=== PATIENT | male | born 1995 | race Caucasian/White ===

== ENCOUNTER 2021-03-07 17:26 | Emergency (ER) | payer BC ==
[2021-03-07 18:02] LABS: #Eosinphils 0.5 thou/uL (0.0-0.7); #Lymphocytes 1.3 thou/uL (1.20-3.40); #Monocytes 0.3 thou/uL (0.11-0.59); #Neutrophils 4.4 thou/uL (1.40-6.50); %Eosinophils 7.6 % (0.0-10.0); %Monocytes 5.1 % (0.0-10.0); %Neutrophils 67.2 % (42.0-75.0); Hemoglobin 14.6 g/dL (14.0-18.0); Mean Corpuscular HGB CONC 32.2 g/dL (32.0-36.0); Mean Corpuscular Volume 93.1 fL (78.0-98.0); Mean Platelet Volume 7.2 fL (7.4-10.4); Platelet Count 227 thou/uL (130-400); RBC Distribution Width 14.1 % (11.5-14.5); Red Blood Cell (RBC) Count 4.87 mill/uL (4.70-6.10); White Blood Cell (WBC) Count 6.5 thou/uL (4.8-10.8)
[2021-03-07 18:33] LABS: ALT (SGPT) 33 U/L (8-55); AST (SGOT) 22 U/L (5-34); Albumin 3.7 g/dL (3.5-5.0); Alkaline Phosphatase 68 U/L (40-110); Anion Gap 11 mmol/L (10-20); BUN (Urea Nitrogen) 15 mg/dL (8.9-20.6); Bilirubin, Total 0.9 mg/dL (0.2-1.2); Calc. Creatinine Clearance 0 mL/min (70-130); Calcium 9.3 mg/dL (7.8-10.44); Carbon Dioxide 26 mmol/L (22-29); Chloride 104 mmol/L (98-107); Globulin 3.8 g/dL (2.4-3.5); Glucose 106 mg/dL (70-105); Potassium 3.9 mmol/L (3.5-5.1); Protein, Total 7.5 g/dL (6.0-8.3); Sodium 137 mmol/L (136-145)
== END 2021-03-07 20:56 | disposition home or self-care (01) ==
LOC: ERS 17:26
DX: R10.12 Left upper quadrant pain (principal); R10.32 Left lower quadrant pain; R19.7 Diarrhea, unspecified; R11.2 Nausea with vomiting, unspecified; E66.01 Morbid (severe) obesity due to excess calories; I10 Essential (primary) hypertension; F17.210 Nicotine dependence, cigarettes, uncomplicated; Z79.899 Other long term (current) drug therapy
CPT/HCPCS: 71045; 80053; 83690; 85025; 86850; 86900; 86901; 93005

== ENCOUNTER 2024-01-25 14:07 | Emergency (ER) | payer OTHER, SELFPAY ==
[2024-01-25] MEDS ORDERED: Ibuprofen 800 MG TAB ONE (14:42)
[2024-01-25 14:43] LABS: #Eosinphils 0.3 thou/uL (0.0-0.7); #Monocytes 0.4 thou/uL (0.11-0.59); #Neutrophils 3.4 thou/uL (1.40-6.50); %Basophils 0.2 % (0.0-1.0); %Eosinophils 5.2 % (0.0-10.0); %Lymphocytes 34.4 % (21.0-51.0); %Monocytes 6.9 % (0.0-10.0); %Neutrophils 52.8 % (42.0-75.0); Hemoglobin 15.7 g/dL (14.0-18.0); Mean Corpuscular HGB CONC 32.7 g/dL (32.0-36.0); Mean Corpuscular Hemoglobin 30.3 pg (27.0-31.0); Mean Corpuscular Volume 92.7 fl (78.0-98.0); Platelet Count 236 10x3/uL (130-400); Red Blood Cell (RBC) Count 5.18 mill/uL (4.70-6.10); White Blood Cell (WBC) Count 6.4 10x3/uL (4.8-10.8)
[2024-01-25 15:02] LABS: Bacteria/HPF None Seen HPF (None Seen); Bilirubin Negative (Negative); Blood, Urine Negative (Negative); CAUTI Indications for Culture Pelvic or flank pain; Clarity Clear (Clear); Glucose, Urine (Dipstick) Normal (Negative); Ketone, Urine Negative (Negative); Leukocyte Negative Leu/uL (Negative); Nitrite Negative (Negative); Protein, Urine (Dipstick) Negative (Neg-Trace); RBC/HPF None Seen HPF (0-3); Specific Gravity, Urine 1.007 (1.002-1.036); Squamous Epithelial 0-3 HPF (0-3); Urobilinogen Normal mg/dL (Less than 2); WBC/HPF 0-3 HPF (0-3); pH, Urine 6.5 (5.0-9.0)
[2024-01-25 15:02] LABS: ALT (SGPT) 46 U/L (8-55); AST (SGOT) 24 U/L (5-34); Albumin 4.2 g/dL (3.5-5.0); Alkaline Phosphatase 79 U/L (40-110); Anion Gap 16 mmol/L (10-20); BUN (Urea Nitrogen) 14 mg/dL (8.9-20.6); Bilirubin, Total 0.7 mg/dL (0.2-1.2); Calc. Creatinine Clearance 0 mL/min (70-130); Calcium 9.3 mg/dL (7.8-10.44); Carbon Dioxide 21 mmol/L (22-29); Chloride 104 mmol/L (98-107); Estimated GFR 108; Globulin 3.9 g/dL (2.4-3.5); Glucose 119 mg/dL (70-105); Protein, Total 8.1 g/dL (6.0-8.3); Sodium 137 mmol/L (136-145)
[2024-01-25 15:05] LABS: Urine Culture Reflex No No
== END 2024-01-25 16:29 | disposition home or self-care (01) ==
LOC: ERS 14:07
DX: N50.811 Right testicular pain (principal); R10.9 Unspecified abdominal pain; I10 Essential (primary) hypertension; F17.210 Nicotine dependence, cigarettes, uncomplicated
CPT/HCPCS: 36415; 76870; 80053; 81001; 85025; 93976

== ENCOUNTER 2024-03-24 17:37 | Inpatient (IN) | payer OTHER, SELFPAY ==
[2024-03-24] MEDS ORDERED: Cefepime 2 GM VIAL ONE (19:27)
[2024-03-24] MEDS ORDERED: Sodium Chloride 0.9% 100 ML ONE (19:27)
[2024-03-24 19:32] LABS: #Basophils Less than 0.03 10x3/uL (0.0-0.2); %Basophils 0.2 % (0.0-1.0); %Eosinophils 4.5 % (0.0-10.0); %Lymphocytes 22.2 % (21.0-51.0); %Monocytes 6.1 % (0.0-10.0); %Neutrophils 66.5 % (42.0-75.0); Hematocrit 44.5 % (42.0-52.0); Hemoglobin 14.5 g/dL (14.0-18.0); Mean Corpuscular HGB CONC 32.6 g/dL (32.0-36.0); Mean Corpuscular Hemoglobin 30.2 pg (27.0-31.0); Mean Corpuscular Volume 92.7 fL (78.0-98.0); Mean Platelet Volume 9.9 fL (7.4-10.4); Platelet Count 309 10x3/uL (130-400); RBC Distribution Width 13.5 % (11.5-14.5)
[2024-03-24 19:49] LABS: Globulin 4.3 g/dL (2.4-3.5)
[2024-03-24 19:53] LABS: ALT (SGPT) 21 U/L (8-55); AST (SGOT) 17 U/L (5-34); Albumin 3.3 g/dL (3.5-5.0); Alkaline Phosphatase 79 U/L (40-110); Anion Gap 16 mmol/L (10-20); BUN (Urea Nitrogen) 15 mg/dL (8.9-20.6); Bilirubin, Total 0.7 mg/dL (0.2-1.2); Calc. Creatinine Clearance 0 mL/min (70-130); Carbon Dioxide 26 mmol/L (22-29); Chloride 101 mmol/L (98-107); Estimated GFR 110; Glucose 133 mg/dL (70-105); Potassium 3.6 mmol/L (3.5-5.1); Protein, Total 7.6 g/dL (6.0-8.3); Sodium 139 mmol/L (136-145)
[2024-03-24] MEDS ORDERED: HYDROcodone/Acetaminophen 5/325 mg Tablet ONE (21:42)
[2024-03-24] MEDS ORDERED: Acetaminophen 325 MG TAB PO PRN ×2 (22:00→22:21)
[2024-03-24] MEDS ORDERED: Ondansetron PF 4 MG/2 ML Vial IVP PRN ×2 (22:00→22:21)
[2024-03-24] MEDS ORDERED: Ondansetron ODT 4 MG TAB SL PRN (22:00)
[2024-03-24] MEDS ORDERED: HYDROcodone/Acetaminophen 10/325 mg Tablet PO PRN (22:21)
[2024-03-24 23:38] VITALS: BMI 52.0
[2024-03-24] MEDS: Vancomycin (BATCH) 2.5 GM in Premix 1 BAG IVPB SCH (23:57)
[2024-03-24] MEDS: Enoxaparin 40 MG (0.4 mL) SYRINGE SC SCH (23:58)
[2024-03-25] MEDS: Vancomycin 1 GM in Premix 1 BAG IVPB SCH (08:04)
[2024-03-25 08:44] LABS: Anion Gap 14 mmol/L (10-20); BUN (Urea Nitrogen) 14 mg/dL (8.9-20.6); Calc. Creatinine Clearance 340 mL/min (70-130); Calcium 9.1 mg/dL (7.8-10.44); Carbon Dioxide 26 mmol/L (22-29); Chloride 102 mmol/L (98-107); Estimated GFR 123; Glucose 101 mg/dL (70-105); Potassium 3.4 mmol/L (3.5-5.1); Sodium 139 mmol/L (136-145)
[2024-03-25 09:07] LABS: Vancomycin, Random 16.4 ug/mL (See Comment)
[2024-03-25 09:20] LABS: #Basophils 0.03 10x3/uL (0.0-0.2); %Basophils 0.4 % (0.0-1.0); %Eosinophils 6.1 % (0.0-10.0); %Monocytes 7.9 % (0.0-10.0); %Neutrophils 55.8 % (42.0-75.0); Hemoglobin 13.2 g/dL (14.0-18.0); Mean Corpuscular HGB CONC 30.7 g/dL (32.0-36.0); Mean Corpuscular Hemoglobin 29.3 pg (27.0-31.0); Mean Corpuscular Volume 95.6 fL (78.0-98.0); Mean Platelet Volume 10.5 fL (7.4-10.4); Platelet Count 225 10x3/uL (130-400); RBC Distribution Width 13.8 % (11.5-14.5)
[2024-03-25] MEDS: HYDROcodone/Acetaminophen 10/325 mg Tablet PO PRN (15:35)
[2024-03-25] MEDS: cefTRIAXone\\ROCEPHIN 1 GM in Sodium Chloride 0.9% 100 ML IVPB SCH (15:36)
[2024-03-25] MEDS: Enoxaparin 40 MG (0.4 mL) SYRINGE SC SCH (20:20)
[2024-03-26 14:18] VITALS: BMI 52.0
[2024-03-26] MEDS: cefTRIAXone\\ROCEPHIN 2 GM in Sodium Chloride 0.9% 100 ML IVPB SCH (14:57)
[2024-03-27] MEDS: Morphine 2 MG/ML VIAL SLOW IVP PRN (01:23)
[2024-03-27 06:57] LABS: Vancomycin, Random 10.2 ug/mL (See Comment)
[2024-03-27] MEDS: Vancomycin (BATCH) 1.25 GM in Premix 1 BAG IVPB SCH (13:35)
[2024-03-28 05:32] LABS: #Basophils Less than 0.03 10x3/uL (0.0-0.2); %Basophils 0.3 % (0.0-1.0); %Eosinophils 6.2 % (0.0-10.0); %Lymphocytes 30.6 % (21.0-51.0); %Monocytes 6.2 % (0.0-10.0); %Neutrophils 56.1 % (42.0-75.0); Hemoglobin 13.2 g/dL (14.0-18.0); Mean Corpuscular HGB CONC 32.2 g/dL (32.0-36.0); Mean Corpuscular Hemoglobin 30.8 pg (27.0-31.0); Mean Corpuscular Volume 95.8 fL (78.0-98.0); Mean Platelet Volume 9.5 fL (7.4-10.4); Platelet Count 259 10x3/uL (130-400); RBC Distribution Width 13.6 % (11.5-14.5); Red Blood Cell (RBC) Count 4.28 mill/uL (4.70-6.10)
[2024-03-28] MEDS: Lorazepam 1 MG TAB PO PRN (05:45)
[2024-03-28 05:46] LABS: Anion Gap 12 mmol/L (10-20); BUN (Urea Nitrogen) 13 mg/dL (8.9-20.6); Calc. Creatinine Clearance 312 mL/min (70-130); Calcium 9.2 mg/dL (7.8-10.44); Carbon Dioxide 28 mmol/L (22-29); Chloride 103 mmol/L (98-107); Estimated GFR 120; Glucose 107 mg/dL (70-105); Potassium 4.4 mmol/L (3.5-5.1); Sodium 139 mmol/L (136-145)
[2024-03-28 05:54] LABS: Vancomycin, Random 15.7 ug/mL (See Comment)
[2024-03-28 07:16] VITALS: BP 162/78; TEMP 98
[2024-03-28] MEDS ORDERED: hydrALAZINE 25 MG TAB PO PRN (07:44)
[2024-03-28] MEDS: Nicotine 21 MG PATCH TD SCH (09:01)
== END 2024-03-28 17:08 | disposition home or self-care (01) | DRG 603 ==
LOC: ERS 17:37 → T4-B 21:50
PROVIDERS: ADMIT Internal Medicine; ATTEND Internal Medicine
DX: L03.115 Cellulitis of right lower limb (principal); Z68.43 Body mass index [BMI] 50.0-59.9, adult; E66.01 Morbid (severe) obesity due to excess calories; I10 Essential (primary) hypertension; E78.5 Hyperlipidemia, unspecified; F17.210 Nicotine dependence, cigarettes, uncomplicated; Z79.891 Long term (current) use of opiate analgesic; Z79.899 Other long term (current) drug therapy
CPT/HCPCS: 36415; 71045; 80048; 80053; 80202; 83605; 83880; 85025; 87040; 87070; 87077; 87081; 87205; 93005; 96361; 96374; 96375; 97139; J0692; J0696; J1650; J2272; J3370; J3370-JW; J3490

== ENCOUNTER 2024-04-07 14:28 | Emergency (ER) | payer SELFPAY ==
[2024-04-07 19:20] LABS: #Basophils 0.03 10x3/uL (0.0-0.2); %Basophils 0.4 % (0.0-1.0); %Monocytes 6.4 % (0.0-10.0); %Neutrophils 58.8 % (42.0-75.0); Hematocrit 44.3 % (42.0-52.0); Hemoglobin 14.3 g/dL (14.0-18.0); Mean Corpuscular HGB CONC 32.3 g/dL (32.0-36.0); Mean Corpuscular Hemoglobin 29.5 pg (27.0-31.0); Mean Corpuscular Volume 91.3 fL (78.0-98.0); Mean Platelet Volume 9.7 fL (7.4-10.4); Platelet Count 235 10x3/uL (130-400); RBC Distribution Width 13.8 % (11.5-14.5); Red Blood Cell (RBC) Count 4.85 mill/uL (4.70-6.10)
[2024-04-07 19:42] LABS: ALT (SGPT) 25 U/L (8-55); AST (SGOT) 19 U/L (5-34); Albumin 3.5 g/dL (3.5-5.0); Alkaline Phosphatase 74 U/L (40-110); Anion Gap 13 mmol/L (10-20); BUN (Urea Nitrogen) 15 mg/dL (8.9-20.6); Bilirubin, Total 0.6 mg/dL (0.2-1.2); Calc. Creatinine Clearance 0 mL/min (70-130); Calcium 9.6 mg/dL (7.8-10.44); Carbon Dioxide 27 mmol/L (22-29); Chloride 105 mmol/L (98-107); Estimated GFR 120; Globulin 3.9 g/dL (2.4-3.5); Glucose 123 mg/dL (70-105); Protein, Total 7.4 g/dL (6.0-8.3); Sodium 141 mmol/L (136-145)
== END 2024-04-07 20:32 | disposition home or self-care (01) ==
LOC: ERS 14:28
DX: S81.801D Unspecified open wound, right lower leg, subsequent encounter (principal); I10 Essential (primary) hypertension; F17.210 Nicotine dependence, cigarettes, uncomplicated; Z79.899 Other long term (current) drug therapy; V89.2XXD Person injured in unspecified motor-vehicle accident, traffic, subsequent encounter
CPT/HCPCS: 36415; 80053; 83605; 85025; 87040